=== PATIENT | male | born 1975 | race Caucasian/White ===

== ENCOUNTER 2019-05-17 14:30 | Emergency (ER) | payer OTHER ==
[2019-05-17 14:51] VITALS: BP 145/87; PULSE 82; TEMP 97.8; BMI 20.9
[2019-05-17] MEDS ORDERED: CEFTRIAXONE 1,000 MG in DEXTROSE 5%-WATER - 50 ML IVPB ONE (15:04)
[2019-05-17] MEDS ORDERED: cefTRIAXone SODIUM 1 GM VIAL ONE (15:22)
--- NOTE | 2019-05-17 15:47 | PDOC ---
Attending Attestation - Resident Resident Name: Cj Caballero - ED Attending Attestation I have performed the following: I have examined & evaluated the patient, The case was reviewed & discussed with the resident, I agree w/resident's findings & plan, Exceptions are as noted - HPI HPI: 05/17/19 15:37 Patient states that he dropped a sharp object onto his left wrist last evening, which broke the skin. He is unsure how deep was the penetration. This morning he noted swelling, redness, and warmth, accompanied by pain with movement of the wrist. Denies distal numbness tingling pain or weakness in the distal hand or fingers. It is the nondominant hand. - Physicial Exam PE: 05/17/19 15:39 There is a 1 cm puncture wound/laceration volar aspect of the wrist, just over the radial artery. The pulses full. There is no hematoma. There is surrounding erythema and warmth which extends from the thenar and hyperthenar eminences of the hand approximately approximately 10 cm, involving the entire volar aspect of the wrist. There is no tenderness over the median structures. There is full tendon function to all 5 digits, of the PIP and DIP joints against resistance. There are no demonstrable sensory deficits. - Medical Decision Making 05/17/19 15:47 Assessment: Puncture wound right wrist, early cellulitis with possible tenosynovitis Plan: Begin antibiotics. First dose intravenously, then continue p.o. Wound was vigorously scrubbed and irrigated with saline, and the culture was taken. Dressed with bacitracin, 4 x 4, and Sapna gauze. Wrist immobilized with a volar splint and patient given a sling for elevation. Close follow-up was recommended in 1 to 2 days with client care specialist. Motrin for pain.
--- NOTE | 2019-05-17 16:00 | PDOC ---
History of Present Illness <Osmar Valentin - Last Filed: 05/17/19 16:01> <Cj Caballero - Last Filed: 05/17/19 18:58> - General Chief Complaint: Injury Stated Complaint: WOUND, REDNESS, SWELLING L WRIST Time Seen by Provider: 05/17/19 14:45 Past History <Osmar Valentin - Last Filed: 05/17/19 16:01> - Past Medical History COPD: No Other medical history: pt denies - Immunization History Td Vaccination: Yes (2002) - Psycho Social/Smoking Cessation Hx Smoking History: Never smoked Have you smoked in the past 12 months: No Information on smoking cessation initiated: No Hx Alcohol Use: ( weekend) <Cj Caballero - Last Filed: 05/17/19 18:58> - Past Medical History Allergies/Adverse Reactions: Allergies Allergy/AdvReac Type Severity Reaction Status Date / Time No Known Allergies Allergy Verified 05/17/19 14:32 Home Medications: Ambulatory Orders Cephalexin Monohydrate [Keflex] 500 mg PO Q6H #30 capsule 05/17/19 Ibuprofen 800 mg PO TID PRN #20 tablet 05/17/19 *Physical Exam - Vital Signs Last Vital Signs Temp Pulse Resp BP Pulse Ox 97.8 F 82 18 145/87 98 05/17/19 14:30 05/17/19 14:30 05/17/19 14:30 05/17/19 14:30 05/17/19 14:30 <Osmar Valentin - Last Filed: 05/17/19 16:01> - Vital Signs Last Vital Signs Temp Pulse Resp BP Pulse Ox 97.8 F 82 18 145/87 98 05/17/19 14:30 05/17/19 14:30 05/17/19 14:30 05/17/19 14:30 05/17/19 14:30 <Cj Caballero - Last Filed: 05/17/19 18:58> ED Treatment Course - Medications Given in the ED: ED Medications Discontinued Medications Generic Name Dose Route Start Last Admin Trade Name Freq PRN Reason Stop Dose Admin Ceftriaxone Sodium 1,000 mg/ 50 mls @ 100 mls/hr 05/17/19 15:04 05/17/19 15: 35 Dextrose IVPB 05/17/19 15:33 100 mls/hr ONCE ONE Administration <Osmar Valentin - Last Filed: 05/17/19 16:01> - Medications Given in the ED: ED Medications Discontinued Medications Generic Name Dose Route Start Last Admin Trade Name Kristin PRN Reason Stop Dose Admin Ceftriaxone Sodium 1,000 mg/ 50 mls @ 100 mls/hr 05/17/19 15:04 05/17/19 15: 35 Dextrose IVPB 05/17/19 15:33 100 mls/hr ONCE ONE Administration <Cj Caballero - Last Filed: 05/17/19 18:58> Medical Decision Making - Medical Decision Making 05/17/19 16:40 HPI: 44M w/o PMH presenting after sustaining a penetrating wrist injury last PM. Pt had garden madeleine fall and penetrate his wrist approx 1/4 inch. Patient removed the madeleine and states there was very little blood. Came to the ED due to swelling and redness of the wrist. Denies f/c. ROS: Denies f/c PE: GEN: NAD, AAOx3 HEENT: NC/AT, normal voice, no facial asymmetry PSYCH: normal mood and affect EXT: Left lateral wrist wound near site of radial artery, healed wound. Warmth, erythema, and induration of the wrist. Pain w/ wrist motion. FROM actively. Finger movements intact. Sensation intact. MDM: 44M s/p penetrating wrist wound due to madeleine falling down. Neurovascularally intact. - wound cleaned - wound cx - bactracin applied, wound wrapped - volar splint applied - IV abx x1 dose - dc home w/ abx and close f/u w/ hand surgery or ED in 2 days <Cj Caballero - Last Filed: 05/17/19 18:58> Discharge - Discharge Information Problems reviewed: Yes - Admission No <Osmar Valentin - Last Filed: 05/17/19 16:01> <Cj Caballero - Last Filed: 05/17/19 18:58> - Discharge Information Clinical Impression/Diagnosis: Cellulitis Qualifiers: Site of cellulitis: extremity Site of cellulitis of extremity: upper extremity Laterality: left Qualified Code(s): L03.114 - Cellulitis of left upper limb Condition: Stable Disposition: HOME - Additional Discharge Information Prescriptions: Cephalexin Monohydrate [Keflex] 500 mg PO Q6H #30 capsule Ibuprofen 800 mg PO TID PRN #20 tablet PRN Reason: Pain - Follow up/Referral Referrals: Dimitrios Cornelius MD [Staff Physician] - 2 Days - Patient Discharge Instructions Patient Printed Discharge Instructions: How to Use a Sling, DI for Cellulitis - - Adult, How to Take Care of Your Splint Additional Instructions: Maintain immobilization with a splint. This will aid in healing the infection Use a sling to keep the arm elevated. Do not allow the arm to hang down by your side Antibiotics and pain medication as directed. Either see hand specialist or return to the ER for a wound check and further evaluation in 24 to 48 hours as directed. If the pain or area of involvement increases return immediately. - Post Discharge Activity Work/Back to School Note: Back to Work
== END 2019-05-17 16:13 | disposition home or self-care (01) ==
LOC: FER 14:30
PROC: 2W3DX1Z Immobilization of Left Lower Arm using Splint (ICD-10-PCS; principal; 2019-05-17)
PROC: 3E03329 Introduction of Other Anti-infective into Peripheral Vein, Percutaneous Approach (ICD-10-PCS; 2019-05-17)
DX: L03.114 Cellulitis of left upper limb (principal); S61.532A Puncture wound without foreign body of left wrist, initial encounter; W20.8XXA Other cause of strike by thrown, projected or falling object, initial encounter; Y93.9 Activity, unspecified; Y92.9 Unspecified place or not applicable
CPT/HCPCS: 87070; 87205; 99283-25